=== PATIENT | female | born 1990 | race Caucasian/White ===

== ENCOUNTER 2024-04-20 17:32 | Emergency (ER) | payer OTHER ==
[~2024-04-20] VITALS: Ht 167.6 cm; Wt 113.4 kg
[2024-04-20] MEDS ORDERED: Ketorolac Tromethamine 30mg Vial IM ONE (18:10)
[2024-04-20] MEDS ORDERED: Lidocaine 4% 1 Patch TOP ONE (18:10)
[2024-04-20] MEDS ORDERED: Cyclobenzaprine HCl 10 MG Tab PO ONE (18:10)
[2024-04-20] MEDS ORDERED: CYCL10 PO (18:13)
== END 2024-04-20 18:54 | disposition home or self-care (01) ==
LOC: ER 17:32
DX: M54.42 Lumbago with sciatica, left side (principal); M43.10 Spondylolisthesis, site unspecified; M48.57XA Collapsed vertebra, not elsewhere classified, lumbosacral region, initial encounter for fracture; Z88.1 Allergy status to other antibiotic agents
CPT/HCPCS: 96372; 99283-25; A9270; J1885